=== PATIENT | male | born 1990 | race Caucasian/White ===

== ENCOUNTER 2020-11-18 23:49 | Emergency (ER) | payer SELFPAY ==
[~2020-11-18] VITALS: Ht 170.2 cm; Wt 64.0 kg
[2020-11-19] MEDS ORDERED: IBUPROFEN 600MG TABLET PO ONE (00:30)
[2020-11-19] MEDS ORDERED: FLUORESCEIN SODIUM 1MG/STRIP RIGHTEYE ONE (00:30)
[2020-11-19] MEDS ORDERED: TETRACAINE 0.5% OPHTH DROPS 4ML RIGHTEYE ONE (00:30)
[2020-11-19] MEDS ORDERED: IBUP-2029 MT (00:43)
[2020-11-19] MEDS ORDERED: POLY10DR RIGHTEYE (00:43)
[2020-11-19 01:40] VITALS: BP 132/69
== END 2020-11-19 01:45 | disposition home or self-care (01) ==
LOC: ER 23:49
DX: S05.01XA Injury of conjunctiva and corneal abrasion without foreign body, right eye, initial encounter (principal); X58.XXXA Exposure to other specified factors, initial encounter; Y93.89 Activity, other specified; Y92.89 Other specified places as the place of occurrence of the external cause
CPT/HCPCS: 99283

== ENCOUNTER 2021-11-17 01:11 | Emergency (ER) | payer SELFPAY ==
[~2021-11-17] VITALS: Ht 170.2 cm; Wt 68.0 kg
[~2021-11-17 01:11] MED LIST: IBUP-2029 MT; POLY10DR RIGHTEYE
[2021-11-17] MEDS ORDERED: MORPHINE SULFATE 4 MG/ML CPJ (NOT FOR IM USE) IV STA (01:18)
[2021-11-17] MEDS ORDERED: ONDANSETRON HCL 4MG/2ML INJ IV STA (01:18)
[2021-11-17] MEDS ORDERED: BACITRACIN ZINC OINT UDPKT TOP ONE (01:30)
[2021-11-17] MEDS ORDERED: SODIUM CHLORIDE 0.9% 1,000 ML IV ONE (01:30)
[2021-11-17] MEDS ORDERED: CEFAZOLIN 1000MG PREMIX 50 ML IV ONE (01:30)
[2021-11-17] MEDS ORDERED: TETANUS, DIPHTHERIA, PERTUSSIS VAC/PF 0.5ML (>10YR OLD) IM ONE (01:30)
[2021-11-17 01:36] LABS: CHLORIDE 107 mEq/L (98-107)
[2021-11-17] MEDS ORDERED: IBUP-2029 MT (03:38)
[2021-11-17] MEDS ORDERED: IOHEXOL-300 100 ML BOTTLE ONE (03:56)
[2021-11-17 04:00] VITALS: BP 126/81
== END 2021-11-17 04:05 | disposition home or self-care (01) ==
LOC: ER 01:11
DX: S21.132A Puncture wound without foreign body of left front wall of thorax without penetration into thoracic cavity, initial encounter (principal); S21.131A Puncture wound without foreign body of right front wall of thorax without penetration into thoracic cavity, initial encounter; X95.9XXA Assault by unspecified firearm discharge, initial encounter; Y93.89 Activity, other specified; Y92.521 Bus station as the place of occurrence of the external cause
CPT/HCPCS: 36415; 71045; 71260; 80048; 86850; 86900; 86901; 90471; 90715; 96365; 96375; 99291; J0690; J2270; J2405; J7030; Q9967

== ENCOUNTER 2022-01-17 00:23 | Emergency (ER) | payer SELFPAY ==
[~2022-01-17] VITALS: Ht 170.2 cm; Wt 73.9 kg
[2022-01-17] MEDS ORDERED: HYDROCODONE/ACETAMINOPHEN 10/325MG TABLET PO ONE (02:45)
[2022-01-17 04:30] VITALS: BP 108/72
== END 2022-01-17 04:54 | disposition home or self-care (01) ==
LOC: ER 01:06
DX: S02.31XA Fracture of orbital floor, right side, initial encounter for closed fracture (principal); R07.89 Other chest pain; V49.59XA Passenger injured in collision with other motor vehicles in traffic accident, initial encounter; Y93.89 Activity, other specified; Y92.414 Local residential or business street as the place of occurrence of the external cause
CPT/HCPCS: 71045; 99291

== ENCOUNTER 2022-01-25 15:24 | Emergency (ER) | payer SELFPAY ==
[~2022-01-25] VITALS: Ht 170.2 cm; Wt 67.0 kg
[2022-01-25 15:33] VITALS: BP 105/68
== END 2022-01-25 20:44 | disposition left against medical advice (07) ==
LOC: ER 15:24
DX: Z53.21 Procedure and treatment not carried out due to patient leaving prior to being seen by health care provider (principal); I49.9 Cardiac arrhythmia, unspecified
CPT/HCPCS: 93005